=== PATIENT | female | born 1975 | race Caucasian/White ===

== ENCOUNTER 2019-02-17 08:44 | Emergency (ER) | payer MEDICAID ==
[~2019-02-17] VITALS: Ht 157.5 cm; Wt 78.0 kg
[~2019-02-17 08:44] MED LIST: BUTA1CAP38 PO
[2019-02-17 08:46] VITALS: Ht 157.5 cm; Wt 78.0 kg
[2019-02-17] MEDS ORDERED: ONDANSETRON 4 MG INJ IV STA (09:06)
[2019-02-17] MEDS ORDERED: SOD CHLORIDE 0.9% 1,000 ML IV STA (09:06)
[2019-02-17] MEDS ORDERED: KETOROLAC 30 MG INJ IV STA (09:06)
[2019-02-17 11:39] VITALS: BP 123/74; PULSE 79; RESP 18
== END 2019-02-17 11:41 | disposition home or self-care (01) ==
LOC: FTE 08:44
DX: R51 Headache (principal)
CPT/HCPCS: 70450; 81001; 81025; 96361; 96374; 96375; J1885; J2405; J7030; Z7502